=== PATIENT | male | born 1945 | race Caucasian/White ===

== ENCOUNTER → 2024-02-03 16:03 | Outpatient (CLI) | payer MEDICARE, SELFPAY ==
[2024-02-03 16:57] LABS: Hematocrit 36.5 % (41-53); Mean Corpuscular Hemoglobin 29.1 PG (26-34); Mean Corpuscular Volume 88.3 fL (80-100); Platelet Count 194 X10^3/uL (150-400); Red Blood Cell Count 4.13 X10^6/uL (4.5-5.9); Red Cell Distribution Width 14.9 % (11.6-14.8); White Blood Cell Count 6.1 X10^3/uL (4.5-11.0)
[2024-02-03 17:12] LABS: Hemoglobin A1C% w Est Avg Glu 5.5 % (4.0-6.0)
[2024-02-03 17:28] LABS: Alanine Aminotransferase 16 IU/L (<50); Albumin 4.1 g/dL (3.5-5.0); Albumin Globulin Ratio 1.4 (1.0-2.8); Alkaline Phosphatase 74 U/L (38-126); Aspartate Aminotransferase 33 IU/L (17-59); BUN Creatinine Ratio 19.2 (6-22); Bilirubin Total 0.5 mg/dL (0.2-1.3); Blood Urea Nitrogen 14 mg/dL (9-20); Calcium 8.9 mg/dL (8.4-10.2); Carbon Dioxide 29 mmol/L (22-32); Chloride 102 mmol/L (98-107); Cholesterol 181 mg/dL (140-199); Estimated Glomerular Filt Rate > 60 mL/min (>60); Globulin 2.9 g/dL (1.7-4.1); Glucose 88 mg/dL (80-110); HDL Cholesterol 83 mg/dL (40-60); HEMOLYSIS < 15 (0-50); LDL Cholesterol Calculated 86 mg/dL (<100); Potassium 4.1 mmol/L (3.4-5.1); Sodium 137 mmol/L (137-145); Triglycerides 62 mg/dL (35-150)
[2024-02-03 17:56] LABS: TSH w/ Reflex to FT4 1.55 uIU/mL (0.47-4.68)
== END ==
PROVIDERS: PCP Internal Medicine; Referring Provider Internal Medicine; Visit Provider Internal Medicine
DX: E78.5 Hyperlipidemia, unspecified (principal); R73.01 Impaired fasting glucose; E78.2 Mixed hyperlipidemia; N40.1 Benign prostatic hyperplasia with lower urinary tract symptoms; N13.8 Other obstructive and reflux uropathy; M19.90 Unspecified osteoarthritis, unspecified site
CPT/HCPCS: 36415; 80053; 80061; 83036; 84153; 84443; 85027

== ENCOUNTER → 2024-02-12 14:21 | Outpatient (CLI) | payer MEDICARE, SELFPAY ==
[2024-02-12 15:26] LABS: HEMOLYSIS 16 (0-50); Iron 67 ug/dL (49-181)
[2024-02-12 15:37] LABS: Percent Iron Saturation 17 % (20-50); Total Iron Binding Capacity 389 ug/dL (261-462); Transferrin 317 mg/dL (206-381)
[2024-02-12 15:45] LABS: Add Manual Diff / Slide Review NO; Basophils Absolute Auto 0 /uL (0-100); Basophils Percent Auto 0.6 % (0-2); Eosinophils Absolute Auto 100 /uL (0-450); Eosinophils Percent Auto 1.5 % (2-4); Hematocrit 37.6 % (41-53); Hemoglobin 12.3 g/dL (13.5-17.5); Lymphocytes Absolute Auto 1400 /uL (1100-4500); Lymphocytes Percent Auto 26.5 % (25-40); Mean Corpuscular HGB Conc 32.6 % (30-36); Mean Corpuscular Hemoglobin 28.5 PG (26-34); Mean Corpuscular Volume 87.4 fL (80-100); Monocytes Absolute Auto 500 /uL (0-900); Neutrophils Absolute Auto 3300 /uL (1500-7000); Neutrophils Percent Auto 61.4 % (50-75); Platelet Count 172 X10^3/uL (150-400); Red Cell Distribution Width 14.8 % (11.6-14.8); White Blood Cell Count 5.3 X10^3/uL (4.5-11.0)
[2024-02-12 15:50] LABS: Reticulocyte Count, Percent 0.5 % (0.9-2.6)
[2024-02-12 16:02] LABS: Ferritin 10 ng/mL (18-464)
[2024-02-12 16:16] LABS: Vitamin B12 Reflex MMA if <400 271 pg/mL (239-931)
== END ==
PROVIDERS: PCP Internal Medicine; Referring Provider Internal Medicine; Visit Provider Internal Medicine
DX: D64.9 Anemia, unspecified (principal); R79.89 Other specified abnormal findings of blood chemistry; E53.8 Deficiency of other specified B group vitamins; R73.01 Impaired fasting glucose; M15.9 Polyosteoarthritis, unspecified; N40.1 Benign prostatic hyperplasia with lower urinary tract symptoms; N13.8 Other obstructive and reflux uropathy
CPT/HCPCS: 82607; 82728; 83540; 83550; 83921; 85025; 85045

== ENCOUNTER → 2025-02-07 13:59 | Outpatient (CLI) | payer MEDICARE, SELFPAY ==
--- NOTE | 2025-02-07 14:01 | DI.RAD.S_ITS ---
PROCEDURE: XR KNEE RT 3V INDICATIONS: right knee pain TECHNIQUE: 3 views of the knee were acquired. COMPARISON: None. 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 Postoperative changes ORIF with sideplate and fixation screws proximal right tibia. Mild nonspecific periosteal calcification proximal right fibula diaphysis may be related to remote healed fracture or other cause. No radiographic evidence of acute fracture, dislocation or high attenuation foreign body. IMPRESSION: Degenerative changes. If symptoms persist or worsen, MRI could be performed. Dictated by: Sidney Wong M.D. on 02/08/2025 at 12:20 Approved by: Sidney Wong M.D. on 02/08/2025 at 12:23
[2025-02-07 14:56] LABS: Hematocrit 39.5 % (41-53); Hemoglobin 13.1 g/dL (13.5-17.5); Mean Corpuscular HGB Conc 33.2 % (30-36); Mean Corpuscular Hemoglobin 30.4 PG (26-34); Mean Corpuscular Volume 91.3 fL (80-100); Platelet Count 141 X10^3/uL (150-400)
[2025-02-07 15:21] LABS: Alanine Aminotransferase 20 IU/L (<50); Albumin 4.1 g/dL (3.5-5.0); Albumin Globulin Ratio 1.5 (1.0-2.8); Alkaline Phosphatase 76 U/L (38-126); Blood Urea Nitrogen 18 mg/dL (9-20); Calcium 8.8 mg/dL (8.4-10.2); Carbon Dioxide 30 mmol/L (22-32); Chloride 101 mmol/L (98-107); Cholesterol 140 mg/dL (140-199); Estimated Glomerular Filt Rate > 60 mL/min (>60); Globulin 2.8 g/dL (1.7-4.1); Glucose 93 mg/dL (70-99); HDL Cholesterol 93 mg/dL (40-60); HEMOLYSIS < 15 (0-50); Potassium 4.0 mmol/L (3.4-5.1); Sodium 136 mmol/L (137-145); Total Protein 6.9 g/dL (6.3-8.2); Triglycerides 66 mg/dL (35-150)
[2025-02-07 15:24] LABS: Hemoglobin A1C% w Est Avg Glu 5.8 % (4.0-6.0)
[2025-02-07 15:32] LABS: HEMOLYSIS < 15 (0-50); Iron 78 ug/dL (49-181)
[2025-02-07 15:43] LABS: Percent Iron Saturation 25 % (20-50); Total Iron Binding Capacity 317 ug/dL (261-462); Transferrin 269 mg/dL (206-381)
[2025-02-07 15:50] LABS: Prostate Specific Antigen 0.495 ng/mL (0.10-4.00)
[2025-02-07 15:54] LABS: Ferritin 25 ng/mL (18-464)
[2025-02-07 16:09] LABS: Vitamin B12 Reflex MMA if <400 575 pg/mL (239-931)
== END ==
PROVIDERS: PCP Internal Medicine; Referring Provider Internal Medicine; Visit Provider Internal Medicine
DX: M15.0 Primary generalized (osteo)arthritis (principal); D50.0 Iron deficiency anemia secondary to blood loss (chronic); R73.01 Impaired fasting glucose; E78.2 Mixed hyperlipidemia; N40.1 Benign prostatic hyperplasia with lower urinary tract symptoms; N13.8 Other obstructive and reflux uropathy; E53.8 Deficiency of other specified B group vitamins
CPT/HCPCS: 36415; 73562; 80053; 80061; 82607; 82728; 83036; 83540; 83550; 84153; 85027